=== PATIENT | male | born 1935 | race Caucasian/White ===

== ENCOUNTER 2016-10-29 12:53 | Emergency (ER) | payer MEDICARE, BC ==
[2016-10-29 11:25] LABS: BASOPHILS 0.2 %; BASOPHILS ABSOLUTE 0.01 10/3/uL (0.0-0.16); EOSINOPHILS 1.1 %; EOSINOPHILS ABSOLUTE 0.07 10/3/uL (0.0-0.53); HEMATOCRIT 42.4 % (40.0-51.0); HEMOGLOBIN 14.6 g/dL (13.6-17.8); IMMATURE GRANULOCYTES 0.5 %; IMMATURE GRANULOCYTES ABSOLUTE 0.03 10/3/uL (0.0-0.11); LYMPHOCYTES 19.7 %; LYMPHOCYTES ABSOLUTE 1.24 10/3/uL (0.67-4.30); MEAN CORPUS HGB CONC 34.4 g/dL (32.0-36.0); MEAN CORPUSCULAR HEMOGLOB 31.2 pg (26.0-34.0); MEAN CORPUSCULAR VOLUME 90.6 fL (80-100); MEAN PLATELET VOLUME 8.6 fL (9.2-13.0); MONOCYTES 8.7 %; MONOCYTES ABSOLUTE 0.55 10/3/uL (0.21-1.20); NEUTROPHILS 69.8 %; NEUTROPHILS ABSOLUTE 4.41 10/3/uL (2.02-8.40); PLATELET COUNT 276 10/3/uL (150-400); RBC DISTRIBUTION WIDTH 12.9 % (12.0-16.0); RED CELL COUNT 4.68 10/6/uL (4.7-6.1); WHITE BLOOD CELLS 6.3 10/3/uL (4.5-10.5)
[2016-10-29 11:26] LABS: MANUAL DIFF NO %
[2016-10-29 11:38] LABS: ASCORBIC ACID (UR NOT ORDER) NEG (NEG); BILIRUBIN, URINE NEGATIVE (NEG); ER URINALYSIS TAT 0 Hrs 22 Mins; KETONE, URINE NEGATIVE (NEG); LEUKOCYTE ESTERASE(NOT OR NEG (NEG); NITRITE (URINE) NEG (NEG); WBC (NOT ORDERED) (RFLEX) 1 (0-5)
[2016-10-29 11:40] LABS: A/G RATIO 1.2 (0.7-1.9); ALBUMIN 3.9 G/DL (3.5-5.0); ALKALINE PHOSPHATASE 74 U/L (45-117); BUN (BLOOD UREA NITROGEN) 15 MG/DL (6-23); CHLORIDE, SERUM 106 MMOL/L (96-112); CO2 (CARBON DIOXIDE) 29 MMOL/L (24-34); CREATININE 0.99 MG/DL (0.70-1.30); GFR AFRICAN AMERICAN 82 ML/MIN (>=60); GFR NON AFRICAN AMERICAN 71 ML/MIN (>=60); GLOBULIN 3.3 G/DL (2.5-4.1); GLUCOSE, SERUM 89 MG/DL (60-99); POTASSIUM, SERUM 4.1 MMOL/L (3.5-5.3); SGOT(AST) 13 U/L (5-40); SGPT(ALT) 18 U/L (5-65); SODIUM, SERUM 142 MMOL/L (135-148); TOTAL BILIRUBIN 0.7 MG/DL (0-1.2); TOTAL PROTEIN 7.2 G/DL (6.0-8.5)
[~2016-10-29 12:53] MED LIST: CELEXA20 PO; LOP50 PO; NORV5 PO; PRAVAC PO; PRAVACHOL40 MG PO
== END 2016-10-29 12:59 | disposition home or self-care (01) ==
LOC: ER 12:53
PROVIDERS: Nurse Practitioner Acute Care
DX: M54.5 Low back pain (principal); I10 Essential (primary) hypertension; Z87.442 Personal history of urinary calculi; Z79.899 Other long term (current) drug therapy
CPT/HCPCS: 74176; 80053; 81001; 83690; 85025; 99284